=== PATIENT | female | born 1980 | race Caucasian/White ===

== ENCOUNTER → 2022-05-02 | Outpatient (REF) | payer OTHER | LOC: M SFHCDERM 17:44 | PROVIDERS: ATTEND Nurse Practitioner Family | DX: D23.61 Other benign neoplasm of skin of right upper limb, including shoulder (principal) ==

== ENCOUNTER → 2022-06-26 | Outpatient (REF) | payer OTHER | LOC: M SFHCDERM 14:25 | PROVIDERS: ATTEND Physician Assistant | DX: D22.61 Melanocytic nevi of right upper limb, including shoulder (principal) ==